=== PATIENT | male | born 1995 | race Caucasian/White ===

== ENCOUNTER 2018-04-19 21:04 | Emergency (ER) | payer BC ==
[2018-04-19 21:10] VITALS: BP 146/90
[2018-04-19] MEDS ORDERED: OXYCODONE/APAP 5/325 TAB PO ONE (21:16)
--- NOTE | 2018-04-19 21:17 | EDPHY ---
H & P Time Seen by Provider: 04/19/18 21:13 HPI/ROS: CHIEF COMPLAINT: Left shoulder injury HISTORY OF PRESENT ILLNESS: Patient was [place] the [place] playing hockey about an hour ago and felt a crunch. He has left shoulder pain which is worse with movement. Not associated with weakness or numbness in the left hand. REVIEW OF SYSTEMS: No neck or back pain, no loss of consciousness. PAST MEDICAL HISTORY: Negative Social history: From [place] visiting playing the [employer] in hockey General Appearance: Alert and conversant, cooperative. No spinal tenderness. Breath sounds equal. Tenderness at the left AC. I can rotate his left shoulder without pain. He has normal upper arm, elbow wrist and hand. Normal motor sensory and vascular in the left arm and hand. No laceration. No splenic tenderness. Emergency Department course/MDM: Oxycodone 1, x-ray of the left shoulder. 2135: X-rays reviewed with patient and his father. They will follow up in [place] when he returns home with Orthopedics. Smoking Status: Never smoked Constitutional: Initial Vital Signs Temperature (C) 36.8 C 04/19/18 21:08 Heart Rate 79 04/19/18 21:08 Respiratory Rate 16 04/19/18 21:08 Blood Pressure 146/90 H 04/19/18 21:08 O2 Sat (%) 94 04/19/18 21:08 O2 Delivery Mode Room Air Allergies/Adverse Reactions: No Known Allergies Allergy (Unverified 04/19/18 21:07) Home Medications: Medication Instructions Recorded oxyCODONE/APAP 5/325 [Percocet] 1 tab PO Q4-6PRN PRN #11 tab 04/19/18 MDM/Departure - MDM Imaging Results: Imaging Impressions Shoulder X-Ray 04/19/18 21:16 Impression: Type III acromioclavicular separation sprain injury. Left shoulder AC separation images reviewed with the patient on the computer system. Imaging: I viewed and interpreted images myself Medications Given: Discontinued Medications Oxycodone/Acetaminophen (Percocet 5/325) 1 tab PO EDNOW ONE Stop: 04/19/18 21:17 Last Admin: 04/19/18 21:36 Dose: 1 tab Oxycodone/Acetaminophen (Percocet 5/325mg Prepack#4) 1 btl TAKEHOME EDNOW ONE Stop: 04/19/18 21:40 Last Admin: 04/19/18 21:43 Dose: 1 btl - Depart Disposition: Home, Routine, Self-Care Clinical Impression: AC separation, type 3 Qualifiers: Encounter type: initial encounter Laterality: left Qualified Code(s): S43.102A - Unspecified dislocation of left acromioclavicular joint, initial encounter Condition: Good Instructions: Oxycodone/Acetaminophen (By mouth), Acromioclavicular Separation (ED) Additional Instructions: Shoulder sling. Activity as tolerated. Please follow up with Orthopedics next week. Bring the CD with X-rays on it to your appointment. No hockey/limited use left shoulder until OK by followup orthopedist. Prescriptions: oxyCODONE/APAP 5/325 [Percocet] 1 tab PO Q4-6PRN PRN #11 tab PRN Reason: Pain Referrals: Jimenez Faustin MD [Medical Doctor] - As per Instructions
[2018-04-19] MEDS ORDERED: OXYCODONE/APAP 5/325MG PREPACK#4 BTL TAKEHOME ONE (21:39)
== END 2018-04-19 22:13 | disposition home or self-care (01) ==
DX: S43.102A Unspecified dislocation of left acromioclavicular joint, initial encounter (principal); W50.0XXA Accidental hit or strike by another person, initial encounter; Y92.330 Ice skating rink (indoor) (outdoor) as the place of occurrence of the external cause; Y93.22 Activity, ice hockey